=== PATIENT | male | born 1965 | race Caucasian/White ===

== ENCOUNTER 2018-04-15 10:34 | Emergency (ER) | payer OTHER ==
[2018-04-15 11:13] LABS: BASO % 0.2 % (0.0-1.0); EOS # 0.2 10^3/uL (0.0-0.50); EOS % 2.1 % (0.0-3.0); HEMATOCRIT 43.4 % (42.0-52.0); HEMOGLOBIN 15.1 g/dl (13.5-17.5); IMMATURE GRANULOCYTE % 0.4 % (0-3.0); LYMPH # 2.6 10^3/uL (1.5-4.5); MEAN CORPUSCULAR HEMOGLOBIN 33.8 pg (27.0-33.0); MEAN CORPUSCULAR HGB CONC 34.8 g/dl (32.0-36.5); MEAN CORPUSCULAR VOLUME 97.1 fl (80.0-96.0); MONO % 12.1 % (0.0-5.0); NEUTROPHILS # 4.7 10^3/uL (1.8-7.7); NEUTROPHILS % 55.2 % (36.0-66.0); PLATELET COUNT, AUTOMATED 320 10^3/uL (150-450); RED BLOOD COUNT 4.47 10^6/uL (4.30-6.10); RED CELL DISTRIBUTION WIDTH 11.9 % (11.5-14.5); WHITE BLOOD COUNT 8.5 10^3/uL (4.0-10.0)
[2018-04-15 11:20] LABS: ANION GAP 9 MEQ/L (8-16); BLOOD UREA NITROGEN 10 MG/DL (7-18); CALCIUM LEVEL 8.8 MG/DL (8.5-10.1); CARBON DIOXIDE LEVEL 28 MEQ/L (21-32); CHLORIDE LEVEL 102 MEQ/L (98-107); CK-MB VALUE MASS < 1.0 NG/ML (<3.6); CPK CREATINE PHOSPHOKINASE 100 U/L (39-308); CREATININE FOR GFR 0.91 MG/DL (0.70-1.30); GLOMERULAR FILTRATION RATE > 60.0 (>56); GLUCOSE, FASTING 100 MG/DL (70-100); POTASSIUM SERUM 3.8 MEQ/L (3.5-5.1); SODIUM LEVEL 139 MEQ/L (136-145); TROPONIN I < 0.02 NG/ML (< 0.10)
[2018-04-15 12:24] LABS: ALBUMIN 3.7 GM/DL (3.2-5.2); ALBUMIN/GLOBULIN RATIO 0.95 (1.00-1.93); ALKALINE PHOSPHATASE 105 U/L (45-117); ALT/SGPT 36 U/L (12-78); AST/SGOT 22 U/L (7-37); BILIRUBIN,DIRECT 0.2 MG/DL (0.0-0.2); BILIRUBIN,TOTAL 0.6 MG/DL (0.2-1.0); LIPASE 131 U/L (73-393); TOTAL PROTEIN 7.6 GM/DL (6.4-8.2)
[2018-04-15 14:12] LABS: CPK CREATINE PHOSPHOKINASE 97 U/L (39-308); MB/CK RELATIVE INDEX 1.03 (< OR =4); TROPONIN I < 0.02 NG/ML (< 0.10)
== END 2018-04-15 14:35 | disposition home or self-care (01) ==
LOC: M ED 10:34
DX: R07.89 Other chest pain (principal); M54.9 Dorsalgia, unspecified; G89.29 Other chronic pain; Z87.891 Personal history of nicotine dependence; Z79.82 Long term (current) use of aspirin; Z79.899 Other long term (current) drug therapy
CPT/HCPCS: 71045

== ENCOUNTER → 2020-05-02 | Outpatient (REF) | payer OTHER ==
[~2020-05-02] MED LIST: ASPI81TA86 PO; CENTCHW4 PO; HYDR-3715 PO; TURM500C3 PO
== END ==
LOC: M LAB REF 11:57
PROVIDERS: ATTEND Physician Assistant
DX: Z11.59 Encounter for screening for other viral diseases (principal)

== ENCOUNTER 2020-12-26 16:35 | Emergency (ER) | payer OTHER ==
[~2020-12-26] VITALS: Ht 170.2 cm; Wt 65.4 kg
[2020-12-26] MEDS ORDERED: NAPR-837 PO (19:08)
[2020-12-26 19:21] VITALS: BP 126/78
== END 2020-12-26 19:21 | disposition home or self-care (01) ==
LOC: M ED 16:35
DX: M70.51 Other bursitis of knee, right knee (principal); Z79.899 Other long term (current) drug therapy; Z79.82 Long term (current) use of aspirin; F17.210 Nicotine dependence, cigarettes, uncomplicated

== ENCOUNTER → 2022-04-14 | Outpatient (CLI) | payer OTHER ==
[~2022-04-14] MED LIST changes: +NAPR-837 PO
[2022-04-14 14:53] LABS: HEMATOCRIT 44.1 % (42.0-52.0); MEAN CORPUSCULAR HEMOGLOBIN 34.2 pg (27.0-33.0); MEAN CORPUSCULAR VOLUME 100.5 fl (80.0-96.0); PLATELET COUNT, AUTOMATED 252 10^3/uL (150-450); RED BLOOD COUNT 4.39 10^6/uL (4.30-6.10); WHITE BLOOD COUNT 4.1 10^3/uL (4.0-10.0)
[2022-04-14 16:07] LABS: CREATININE, URINE 145.5 MG/DL
[2022-04-14 16:08] LABS: ALBUMIN 3.9 G/DL (3.2-5.2); ALKALINE PHOSPHATASE 114 U/L (46-116); ALT/SGPT 116 U/L (7.0-40); AST/SGOT 109 U/L (<34); BILIRUBIN,TOTAL 0.6 MG/DL (0.3-1.2); BLOOD UREA NITROGEN 10 MG/DL (9-23); CALCIUM LEVEL 9.4 MG/DL (8.5-10.1); CARBON DIOXIDE LEVEL 26 MMOL/L (20-31); CHLORIDE LEVEL 99 MMOL/L (98-107); CHOLESTEROL LEVEL 198 MG/DL (<200); CHOLESTEROL RISK RATIO 2.62 (<5); CREATININE FOR GFR 0.71 MG/DL (0.70-1.30); GLOMERULAR FILTRATION RATE > 60.0 (>56); GLUCOSE, FASTING 103 MG/DL (60-100); HDL CHOLESTEROL 75.5 MG/DL (>40); LDL CHOLESTEROL 106.7 MG/DL (<100); MALB URINE SIEMENS < 5.0 MG/DL; MAU/CREAT RATIO 3.4 MCG/MG (0.0-30.0); NON-HDL-C 123 MG/DL; POTASSIUM SERUM 4.5 MMOL/L (3.5-5.1); SODIUM LEVEL 133 MMOL/L (136-145); TOTAL PROTEIN 7.6 G/DL (5.7-8.2); TRIGLYCERIDES LEVEL 79 MG/DL (<150)
[2022-04-14 16:13] LABS: TOTAL 25(OH) VITAMIN D 47.6 NG/ML (20.0-100.0); VITAMIN B12 LEVEL 521 PG/ML (211-911)
[2022-04-14 16:14] LABS: THYROID STIMULATING HORMONE 3.685 uIU/ML (0.55-4.78)
[2022-04-14 16:15] LABS: FREE T4 1.04 NG/DL (0.89-1.76)
[2022-04-14 23:06] LABS: HEMOGLOBIN A1c 5.3 % (4.0-6.0)
== END ==
LOC: M PLALAB 09:07
PROVIDERS: ATTEND Physician Assistant
DX: R21 Rash and other nonspecific skin eruption (principal)

== ENCOUNTER → 2022-04-29 | Outpatient (CLI) | payer OTHER ==
[2022-04-29 14:00] LABS: INR 0.97; PROTHROMBIN TIME 13.1 SECONDS (12.5-14.5)
[2022-04-29 14:11] LABS: ALBUMIN 3.3 G/DL (3.2-5.2); ALKALINE PHOSPHATASE 89 U/L (46-116); ALT/SGPT 75 U/L (7.0-40); AST/SGOT 37 U/L (<34); BILIRUBIN,DIRECT 0.1 MG/DL (<0.4); BILIRUBIN,TOTAL 0.4 MG/DL (0.3-1.2); TOTAL PROTEIN 6.9 G/DL (5.7-8.2)
[2022-04-29 14:44] LABS: HEPATITIS C VIRUS ABY INDEX 0.2 INDEX (<0.8)
[2022-04-29 14:45] LABS: HEPATITIS B CORE ANTIBODY IGM NEGATIVE (NEGATIVE)
[2022-04-29 15:29] LABS: HEPATITIS B SURFACE ANTIGEN NEGATIVE (NEGATIVE)
== END ==
LOC: M PLALAB 11:40
PROVIDERS: ATTEND Physician Assistant
DX: R79.89 Other specified abnormal findings of blood chemistry (principal)

== ENCOUNTER → 2022-06-21 | Outpatient (CLI) | payer OTHER ==
[2022-06-21 17:25] LABS: BASO % 0.2 % (0.0-1.0); EOS # 0.2 10^3/uL (0.0-0.5); EOS % 2.9 % (0.0-3.0); HEMATOCRIT 40.6 % (42.0-52.0); HEMOGLOBIN 13.9 g/dl (13.5-17.5); LYMPH # 1.8 10^3/uL (1.5-5.0); LYMPH % 27.9 % (24.0-44.0); MEAN CORPUSCULAR HEMOGLOBIN 34.1 pg (27.0-33.0); MEAN CORPUSCULAR HGB CONC 34.2 g/dl (32.0-36.5); MEAN CORPUSCULAR VOLUME 99.5 fl (80.0-96.0); MONO % 14.9 % (2.0-8.0); NEUTROPHILS # 3.5 10^3/uL (1.5-8.5); NEUTROPHILS % 53.8 % (36.0-66.0); PLATELET COUNT, AUTOMATED 270 10^3/uL (150-450); RED BLOOD COUNT 4.08 10^6/uL (4.30-6.10); WHITE BLOOD COUNT 6.5 10^3/uL (4.0-10.0)
[2022-06-21 17:50] LABS: ALBUMIN 3.7 G/DL (3.2-5.2); ALKALINE PHOSPHATASE 109 U/L (46-116); ALT/SGPT 19 U/L (7.0-40); AST/SGOT 23 U/L (<34); BILIRUBIN,TOTAL 0.5 MG/DL (0.3-1.2); BLOOD UREA NITROGEN 14 MG/DL (9-23); CALCIUM LEVEL 9.2 MG/DL (8.5-10.1); CARBON DIOXIDE LEVEL 29 MMOL/L (20-31); CHLORIDE LEVEL 103 MMOL/L (98-107); CREATININE FOR GFR 0.73 MG/DL (0.70-1.30); GLOMERULAR FILTRATION RATE > 60.0 (>56); GLUCOSE, FASTING 83 MG/DL (60-100); POTASSIUM SERUM 4.5 MMOL/L (3.5-5.1); SODIUM LEVEL 138 MMOL/L (136-145); TOTAL PROTEIN 7.4 G/DL (5.7-8.2)
== END ==
LOC: M PLALAB 15:23
PROVIDERS: ATTEND Physician Assistant
DX: B35.1 Tinea unguium (principal)

== ENCOUNTER → 2022-09-10 | Outpatient (CLI) | payer OTHER ==
[2022-09-10 14:07] LABS: HEMATOCRIT 46.3 % (42.0-52.0); HEMOGLOBIN 15.1 g/dl (13.5-17.5); MEAN CORPUSCULAR HEMOGLOBIN 33.3 pg (27.0-33.0); MEAN CORPUSCULAR HGB CONC 32.6 g/dl (32.0-36.5); MEAN CORPUSCULAR VOLUME 102.2 fl (80.0-96.0); PLATELET COUNT, AUTOMATED 256 10^3/uL (150-450); RED BLOOD COUNT 4.53 10^6/uL (4.30-6.10); WHITE BLOOD COUNT 6.5 10^3/uL (4.0-10.0)
[2022-09-10 14:15] LABS: ALBUMIN 3.8 G/DL (3.2-5.2); ALKALINE PHOSPHATASE 124 U/L (46-116); ALT/SGPT 39 U/L (7.0-40); AST/SGOT 36 U/L (<34); BILIRUBIN,TOTAL 0.5 MG/DL (0.3-1.2); BLOOD UREA NITROGEN 14 MG/DL (9-23); C REACTIVE PROTEIN QUANTITATIV < 0.40 MG/DL (<1.0); CALCIUM LEVEL 9.2 MG/DL (8.5-10.1); CARBON DIOXIDE LEVEL 26 MMOL/L (20-31); CHLORIDE LEVEL 104 MMOL/L (98-107); CHOLESTEROL LEVEL 175 MG/DL (<200); CREATININE FOR GFR 0.76 MG/DL (0.70-1.30); GLOMERULAR FILTRATION RATE > 60.0 (>56); GLUCOSE, FASTING 95 MG/DL (60-100); POTASSIUM SERUM 4.8 MMOL/L (3.5-5.1); SODIUM LEVEL 136 MMOL/L (136-145); TOTAL PROTEIN 7.4 G/DL (5.7-8.2); TRIGLYCERIDES LEVEL 40 MG/DL (<150)
[2022-09-10 14:17] LABS: THYROID STIMULATING HORMONE 1.833 uIU/ML (0.55-4.78); TOTAL 25(OH) VITAMIN D 62.7 NG/ML (20.0-100.0); VITAMIN B12 LEVEL 537 PG/ML (211-911)
[2022-09-10 14:23] LABS: HEMOGLOBIN A1c 5.5 % (4.0-6.0)
== END ==
LOC: M PLALAB 09:53
PROVIDERS: ATTEND Internal Medicine Hematology
DX: E88.81 Metabolic syndrome and other insulin resistance (principal)

== ENCOUNTER → 2022-10-20 | Outpatient (REF) | payer OTHER ==
[~2022-10-20] MED LIST changes: +CIPR0.3S37 OD
== END ==
LOC: M SFHCPLAZ 13:07
PROVIDERS: ATTEND Internal Medicine Hematology
DX: L30.9 Dermatitis, unspecified (principal)

== ENCOUNTER 2022-10-29 20:28 | Emergency (ER) | payer OTHER ==
[~2022-10-29 20:28] MED LIST changes: -CIPR0.3S37 OD
[2022-10-29 20:29] VITALS: BP 146/82; TEMP 97.8; O2SAT 98
[2022-10-30] MEDS ORDERED: CIPR0.3S37 OD (09:25)
== END 2022-10-29 22:16 | disposition left against medical advice (07) ==
LOC: M ED 20:28
DX: Z53.21 Procedure and treatment not carried out due to patient leaving prior to being seen by health care provider (principal)

== ENCOUNTER 2022-10-30 07:57 | Emergency (ER) | payer OTHER ==
[~2022-10-30] VITALS: Ht 170.2 cm; Wt 66.7 kg
[2022-10-30 07:59] VITALS: BP 151/88; TEMP 98.4; O2SAT 98
[2022-10-30] MEDS ORDERED: FLUORESCEIN OPHTH 1MG STRIP OU ONE (09:00)
[2022-10-30] MEDS ORDERED: BOOSTRIX VACCINE (TETANUS/DIPHTH/ACEL. PERTUSSIS) 0.5ML SYR IM ONE (09:00)
[2022-10-30] MEDS ORDERED: PROPARACAINE 0.5% OPHTH SOL 15ML OU ONE (09:00)
[2022-10-30] MEDS ORDERED: CIPROFLOXACIN 0.3% OPHTH SOLN 2.5ML OD ONE (09:25)
[2022-10-30] MEDS ORDERED: CIPR0.3S37 OD (09:25)
== END 2022-10-30 09:42 | disposition home or self-care (01) ==
LOC: M ED 07:57
DX: T15.01XA Foreign body in cornea, right eye, initial encounter (principal); X58.XXXA Exposure to other specified factors, initial encounter; Y92.89 Other specified places as the place of occurrence of the external cause; Y93.89 Activity, other specified; Y99.8 Other external cause status

== ENCOUNTER → 2022-12-09 | Outpatient (CLI) | payer OTHER ==
[~2022-12-09] MED LIST changes: +CIPR0.3S37 OD
[2022-12-09 16:03] LABS: C REACTIVE PROTEIN QUANTITATIV < 0.40 MG/DL (<1.0)
[2022-12-09 16:04] LABS: COMPLEMENT C3 119.2 MG/DL (90.0-170.0); COMPLEMENT C4 33.6 MG/DL (12-36)
== END ==
LOC: M PLALAB 12:19
PROVIDERS: ATTEND Internal Medicine Hematology
DX: L93.0 Discoid lupus erythematosus (principal)

== ENCOUNTER → 2022-12-13 | Outpatient (REF) | payer OTHER | LOC: M SFHCDERM 15:23 | PROVIDERS: ATTEND Physician Assistant | DX: Z53.9 Procedure and treatment not carried out, unspecified reason (principal) ==